=== PATIENT | female | born 1990 | race Asian ===

== ENCOUNTER 2018-05-03 20:50 | Emergency (ER) | payer BC, OTHER ==
[~2018-05-03] VITALS: Ht 160 cm; Wt 55.0 kg
[2018-05-03 20:55] VITALS: Ht 160 cm; Wt 55.0 kg
[2018-05-03] MEDS ORDERED: HYDROmorphONE 2 MG/ML SYG IV ONE (21:30)
[2018-05-03] MEDS ORDERED: ONDANSETRON 4 MG INJ IV ONE (21:30)
[2018-05-03] MEDS ORDERED: HYDR-3980 PO (22:55)
[2018-05-03] MEDS ORDERED: IBUP800T48 PO (22:55)
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
[2018-05-03 23:21] VITALS: BP 120/61; PULSE 59; RESP 19
== END 2018-05-03 23:48 | disposition home or self-care (01) ==
LOC: E/R 20:50
DX: S93.432A Sprain of tibiofibular ligament of left ankle, initial encounter (principal); S20.219A Contusion of unspecified front wall of thorax, initial encounter; V49.59XA Passenger injured in collision with other motor vehicles in traffic accident, initial encounter
CPT/HCPCS: 29515; 71045; 73590; 73610; 84703; 96374; 96375; 99284; J1170; J2405